=== PATIENT | female | born 1930 | race Caucasian/White ===

== ENCOUNTER → 2017-09-24 15:42 | Outpatient (CLI) | payer MEDICARE, BC ==
[2013-06-24 10:16] VITALS: BMI 26.7
[~2017-09-24 15:42] MED LIST: BAYER CHEWABLE81 MG PO; COREG6.25 MG PO; CRESTOR10 MG PO; KLOR-CON 1010 MEQ PO; LASIX40 MG PO; LISINOPRIL5 MG PO; PLAVIX75 MG PO; PRINIVIL20 MG PO; PROTONIX40 MG PO; SYNTHROID150 MCG PO; ULTRAM50 MG PO
== END | disposition home or self-care (01) ==
LOC: D.MAMMO 08:15
DX: Z12.31 Encounter for screening mammogram for malignant neoplasm of breast (principal)